=== PATIENT | female | born 1995 | race Caucasian/White ===

== ENCOUNTER 2018-05-08 22:54 | Emergency (ER) | payer SELFPAY ==
[2018-05-09 00:04] LABS: APPEARANCE,URINE SLIGHTLY-CLOUDY; BILIRUBIN,URINE NEGATIVE (NEGATIVE); COLOR,URINE YELLOW; GLUCOSE, URINE NEGATIVE (NEGATIVE); KETONES,URINE NEGATIVE (NEGATIVE); LEUKOCYTE ESTERASE,URINE MODERATE (NEGATIVE); NITRITE,URINE POSITIVE (NEGATIVE); PROTEIN,URINE NEGATIVE (NEGATIVE); UROBILINOGEN,URINE NEGATIVE mg/dL (<2.0)
[2018-05-09 00:07] LABS: URINE AMPHETAMINES SCREEN NEGATIVE; URINE BARBITURATES SCREEN NEGATIVE; URINE BENZODIAZEPINES SCREEN NEGATIVE; URINE COCAINE SCREEN NEGATIVE; URINE MARIJUANA (THC) SCREEN NEGATIVE; URINE METHADONE SCREEN NEGATIVE; URINE PHENCYCLIDINE SCREEN NEGATIVE
[2018-05-09 00:35] LABS: ABSOLUTE EOSINOPHILS # (AUTO) 0.1 10^3/uL (0.0-0.6); ABSOLUTE LYMPHOCYTES (AUTO) 1.9 10^3/uL (0.5-4.7); ABSOLUTE MONOCYTES (AUTO) 0.5 10^3/uL (0.1-1.4); BASOPHILS % (AUTO) 0.3 % (0-2); EOSINOPHILS % (AUTO) 0.8 % (0-6); HEMATOCRIT 31.7 % (36.0-47.0); LYMPHOCYTES % (AUTO) 16.4 % (13-45); MEAN CORPUSCULAR HEMOGLOBIN 28.9 pg (27.0-33.4); MEAN CORPUSCULAR HGB CONC 34.6 g/dL (32.0-36.0); MEAN CORPUSCULAR VOLUME 84 fl (80-97); MONOCYTES % (AUTO) 4.7 % (3-13); PLATELET COUNT 244 10^3/uL (150-450); RED BLOOD COUNT 3.78 10^6/uL (3.72-5.28); RED CELL DISTRIBUTION WIDTH 13.6 % (11.5-14.0); SEGMENTED NEUTROPHILS % (AUTO) 77.8 % (42-78); TOTAL CELLS COUNTED % (AUTO) 100 %; WHITE BLOOD COUNT 11.5 10^3/uL (4.0-10.5)
[2018-05-09 00:58] LABS: ALANINE AMINOTRANSFERASE 19 U/L (9-52); ALBUMIN 3.9 g/dL (3.5-5.0); ALKALINE PHOSPHATASE 50 U/L (38-126); ANION GAP 8 (5-19); ASPARTATE AMINO TRANSFERASE 13 U/L (14-36); BILIRUBIN,DIRECT 0.1 mg/dL (0.0-0.4); BILIRUBIN,TOTAL 0.5 mg/dL (0.2-1.3); BLOOD UREA NITROGEN 8 mg/dL (7-20); CALCIUM 9.1 mg/dL (8.4-10.2); CARBON DIOXIDE 23 mmol/L (22-30); CHLORIDE 103 mmol/L (98-107); GLUCOSE 80 mg/dL (75-110); POTASSIUM 3.9 mmol/L (3.6-5.0); SODIUM 133.9 mmol/L (137-145); TOTAL PROTEIN 6.5 g/dL (6.3-8.2)
[2018-05-09 00:59] LABS: ACETAMINOPHEN < 10 ug/mL (10-30); ALCOHOL < 10 mg/dL (NONE DETECTED); SALICYLATE < 1.0 mg/dL (2.0-20.0)
--- NOTE | 2018-05-09 01:25 | EKG REPORT ---
SEVERITY:- BORDERLINE ECG - SINUS RHYTHM BORDERLINE T ABNORMALITIES, ANTERIOR LEADS : Confirmed by: Laura Kaur MD 09-May-2018 01:24:08
--- NOTE | 2018-05-09 01:31 | ER Document Report ---
ED General - General Chief Complaint: Overdose Stated Complaint: OVERDOSE Time Seen by Provider: 05/09/18 00:19 Notes: Patient is a 22-year-old female at unknown gestational age, presents complaining of possibly overdosing on an [id number] Excedrin type migraine headache medication. The patient reports that she took at most 8 of these tablets and that this was because she did "not want to feel anything anymore" but that she was not trying to harm herself, did not want to go to sleep without waking up and had no intentions of harming herself. She states that she actually threw up or spit out most the medications shortly thereafter. She is here because her contacted 911. She denies any history of similar events in the past. She also denies any history of mental health disorders. She states that she has been very stressed because she recently received news that she was unable to conceive children would not have congenital defects. She denies any acute medical complaints. Has not seen her general provider regarding today's concerns. TRAVEL OUTSIDE OF THE [place] IN LAST 30 DAYS: No - Related Data Allergies/Adverse Reactions: No Known Allergies Allergy (Unverified 05/09/18 00:20) Past Medical History - General Information source: Patient, Relative - Social History Smoking Status: Never Smoker Frequency of alcohol use: None Drug Abuse: None Lives with: Spouse/Significant other Family History: Reviewed & Not Pertinent Patient has suicidal ideation: No Patient has homicidal ideation: No Renal/ Medical History: Denies: Hx Peritoneal Dialysis Past Surgical History: Reports: Hx Genitourinary Surgery - Review of Systems - Review of Systems Notes: Constitutional: Negative for fever. HENT: Negative for sore throat. Eyes: Negative for visual changes. Cardiovascular: Negative for chest pain. Respiratory: Negative for shortness of breath. Gastrointestinal: Negative for abdominal pain, vomiting or diarrhea. Genitourinary: Negative for dysuria. Musculoskeletal: Negative for back pain. Skin: Negative for rash. Neurological: Negative for headaches, weakness or numbness. 10 point ROS negative except as marked above and in HPI. Physical Exam - Vital signs Vitals: Temp Pulse Resp BP Pulse Ox 98.7 F 87 20 107/63 100 05/08/18 23:10 05/08/18 23:10 05/08/18 23:10 05/08/18 23:10 05/08/18 23:10 Interpretation: Normal Notes: PHYSICAL EXAMINATION: GENERAL: Well-appearing, well-nourished and in no acute distress. HEAD: Atraumatic, normocephalic. EYES: Pupils equal round and reactive to light, extraocular movements intact, sclera anicteric, conjunctiva are normal. ENT: nares patent, oropharynx clear without exudates. Moist mucous membranes. NECK: Normal range of motion, supple without lymphadenopathy LUNGS: Breath sounds clear to auscultation bilaterally and equal. No wheezes rales or rhonchi. HEART: Regular rate and rhythm without murmurs ABDOMEN: Soft, nontender, normoactive bowel sounds. No guarding, no rebound. No masses appreciated. EXTREMITIES: Normal range of motion, no pitting or edema. No cyanosis. NEUROLOGICAL: No focal neurological deficits. Moves all extremities spon taneously and on command. PSYCH: Normal mood, normal affect. SKIN: Warm, Dry, normal turgor, no rashes or lesions noted. Course - Re-evaluation Re-evalutation: 05/09/18 01:14 Patient presents with an intentional overdose of maximally 8 tabs of [facility] brand migraine medication which contains 250 mg of acetaminophen, 250 mg of salicy late, and 50 mg of caffeine. Poison control and contacted, recommended monitoring Tylenol and salicylate levels although initial levels are completely negative and the patient took these medications greater than 4 hours prior to arrival by both the patient and her 's report. Patient states she maximally took 8 tablets of these pills and her does corroborate the story. This would not be dangerous levels of either of these medications. Repeat acetaminophen and salicylate levels will be drawn 4 hours after initial. Patient states that she was not trying to harm herself with the ingestion tonight, was trying to cope with a recent medical diagnosis of infertility. I spent over 1 hour speaking to the patient and her separately and together. They have come to an agreement that they would like to go home as the patient needs to follow-up for surgical in [place] tomorrow as the current fetus has incurable defects. The patient had initially less than forthright with her regarding this issue. I have encouraged open communication between the 2 of them. The patient also has negative salicylate levels and Tylenol levels and I suspect that the patient either is not on the true that she took these medications at all or as she reports she vomited them up immediately after taking them. Patient does not meet involuntary criteria, however release her at her and her 's request. - Vital Signs Vital signs: Temp Pulse Resp BP Pulse Ox 98.4 F 76 18 109/65 100 05/09/18 01:55 05/09/18 01:55 05/09/18 01:55 05/09/18 01:55 05/09/18 01:55 - Laboratory Result Diagrams: 05/09/18 00:04 05/09/18 00:04 Laboratory results interpreted by me: 05/08/18 05/08/18 05/09/18 23:35 23:35 00:04 WBC 11.5 H Hgb 11.0 L Hct 31.7 L Absolute Neutrophils 9.0 H Sodium Creatinine AST Urine Nitrite POSITIVE H Ur Leukocyte Esterase MODERATE H Urine HCG, Qual POSITIVE H Salicylates Acetaminophen 05/09/18 00:04 WBC Hgb Hct Absolute Neutrophils Sodium 133.9 L Creatinine 0.47 L AST 13 L Urine Nitrite Ur Leukocyte Esterase Urine HCG, Qual Salicylates < 1.0 L Acetaminophen < 10 L - EKG Interpretation by Me Additional EKG results interpreted by me: 05/09/18 01:15 Sinus rhythm, rate 74. No ST elevations or depressions. QTC is 422. Discharge - Discharge Clinical Impression: Medication overdose Qualifiers: Encounter type: initial encounter Injury intent: undetermined intent Qualified Code(s): T50.904A - Poisoning by unspecified drugs, medicaments and biological substances, undetermined, initial encounter Qualifiers: Weeks of gestation: unspecified Qualified Code(s): Z34.90 - Encounter for supervision of normal , unspecified, unspecified trimester Condition: Good Disposition: HOME, SELF-CARE Additional Instructions: Please return if you have thoughts of wanting to hurt yourself, hurt others, or have any other symptoms that are concerning to you.
[2018-05-09 01:58] VITALS: BP 109/65
== END 2018-05-09 01:58 | disposition home or self-care (01) ==
LOC: ER 22:54
DX: O9A.219 Injury, poisoning and certain other consequences of external causes complicating pregnancy, unspecified trimester (principal); T39.1X1A Poisoning by 4-Aminophenol derivatives, accidental (unintentional), initial encounter; Y92.009 Unspecified place in unspecified non-institutional (private) residence as the place of occurrence of the external cause
CPT/HCPCS: 36415; 80053; 80307; 81001; 81025; 85025; 87086; 87088; 87186; 93005; 93010; 99284